=== PATIENT | female | born 1965 | race Caucasian/White ===

== ENCOUNTER 2019-02-24 20:59 | Emergency (ER) | payer OTHER ==
[~2019-02-24] VITALS: Ht 160 cm; Wt 137.9 kg
[2019-02-24 21:48] LABS: ABSOLUTE NEUTROPHILS 6.2 thou/uL (1.4-8.2); BASOPHILS 1.4 % (0.0-2.0); EOSINOPHILS 1.3 % (0.0-3.0); HEMATOCRIT 36.7 % (37.0-47.0); HEMOGLOBIN 12.1 gm/dL (12.0-15.0); LYMPHOCYTES 14.1 % (24.0-44.0); MCH 25.9 pg (26.0-34.0); MCHC 32.9 g/dL (28.0-37.0); MCV 78.6 fL (80.0-100.0); MONOCYTES 4.5 % (1.0-8.0); PLATELET COUNT 312 thou/uL (150-400); POLYS 78.7 % (36.0-66.0); RBC 4.67 mil/uL (4.20-5.00); WBC 7.8 thou/uL (4.0-11.0)
[2019-02-24 21:58] LABS: CALCIUM 9.3 mg/dL (8.5-10.1); CREATININE 0.8 mg/dL (0.6-1.0)
[2019-02-24 22:04] LABS: ALBUMIN 3.6 g/dL (3.4-5.0); DIRECT BILIRUBIN 0.1 mg/dL (<0.1-0.3); TOTAL BILIRUBIN 0.5 mg/dL (<0.1-1.0); TOTAL PROTEIN 7.7 g/dL (6.4-8.2)
[2019-02-24 23:30] VITALS: BP 209/108
== END 2019-02-24 23:30 | disposition home or self-care (01) ==
LOC: ER 20:59
PROVIDERS: Emergency Medicine
DX: K46.9 Unspecified abdominal hernia without obstruction or gangrene (principal); Z87.891 Personal history of nicotine dependence; Z88.8 Allergy status to other drugs, medicaments and biological substances